=== PATIENT | female | born 1950 | race American Indian/Alaskan Native ===

== ENCOUNTER 2017-12-07 15:35 | Emergency (ER) | payer MEDICARE ==
[2017-12-07 17:17] LABS: Basophils # (Auto) 0.1 K/mm3 (0.0-0.1); Basophils % (Auto) 0.8 % (0.0-1.8); Eosinophils # (Auto) 0.1 K/mm3 (0.0-0.4); Hematocrit 31.6 % (30.3-42.9); Hemoglobin 9.6 gm/dl (10.1-14.3); Lymphocytes % (Auto) 26.8 % (13.4-35.0); Mean Corpuscular HGB Conc 31 % (30-34); Monocytes # (Auto) 0.5 K/mm3 (0.0-0.8); Platelet Count 266 K/mm3 (140-440); Red Blood Count 4.81 M/mm3 (3.65-5.03)
[2017-12-07 17:19] LABS: Mean Corpuscular Hemoglobin 20 pg (28-32); Mean Corpuscular Volume 66 fl (79-97)
[2017-12-07 17:28] LABS: INR 0.95 (0.87-1.13)
[2017-12-07 17:31] LABS: Alanine Aminotransferase 7 units/L (7-56); Albumin 3.8 g/dL (3.9-5); BUN/Creatinine Ratio 21; Blood Urea Nitrogen 23 mg/dL (7-17); Calcium 8.6 mg/dL (8.4-10.2); Hemolysis Index 0
[2017-12-07] MEDS ORDERED: NACL 0.9% 1000 ML 1,000 ML IV ONE (18:26)
[2017-12-07 18:51] LABS: Bacteria,Urine 1+ /HPF (Negative); Bilirubin,Urine NEG (Negative); Blood,Urine NEG (Negative); Color,Urine Straw (Yellow); Mucus,Urine FEW /HPF; Urobilinogen,Urine < 2.0 mg/dL (<2.0)
[2017-12-07] MEDS ORDERED: APRESOLINE IV ONE (18:54)
[2017-12-07 19:52] VITALS: BP 199/68
--- NOTE | 2017-12-07 20:54 | Emergency Department Report ---
ED General Adult HPI - General Chief complaint: Wound/Laceration Stated complaint: TOE PAIN Time Seen by Provider: 12/07/17 18:14 Source: patient Mode of arrival: Wheelchair Limitations: No Limitations - History of Present Illness Initial comments: Patient is a 67-year-old [place] female who is presenting with an area that is draining fluid from the right foot. Patient is a diabetic and states that she works shoes that were too tight yesterday. She is Some swelling to the base of the great toe and there is a small opening discussing clear drainage. Patient states is no pain. Patient denies any nausea vomiting diarrhea or fever at this time. She is able to move her toes with normal effort. Patient states that she is able to bear weight. Severity scale (0 -10): 6 - Related Data Previous Rx's Medication Instructions Recorded Last Taken Type Hydrochlorothiazide [HCTZ] 25 mg PO QDAY #90 tablet 02/04/16 Unknown Rx amLODIPine [Norvasc] 10 mg PO DAILY #90 tab 02/04/16 Unknown Rx glipiZIDE [glipiZIDE XL] 10 mg PO QDAY #90 tab.er.24 02/04/16 Unknown Rx Mupirocin [Bactroban 2% OINT] 1 applic TP TID #1 tube 03/06/16 Unknown Rx Sulfamethoxazole/Trimethoprim 1 each PO BID #10 tablet 12/07/17 Unknown Rx [Bactrim DS TAB] Allergies Allergy/AdvReac Type Severity Reaction Status Date / Time No Known Allergies Allergy Unverified 02/04/16 12:59 ED Review of Systems ROS: Stated complaint: TOE PAIN Other details as noted in HPI Comment: All other systems reviewed and negative ED Past Medical Hx - Past Medical History Hx Hypertension: Yes Hx Diabetes: Yes - Social History Smoking Status: Never Smoker Substance Use Type: None - Medications Home Medications: Home Medications Medication Instructions Recorded Confirmed Last Taken Type Hydrochlorothiazide [HCTZ] 25 mg PO QDAY #90 tablet 02/04/16 Unknown Rx amLODIPine [Norvasc] 10 mg PO DAILY #90 tab 02/04/16 Unknown Rx glipiZIDE [glipiZIDE XL] 10 mg PO QDAY #90 tab.er.24 02/04/16 Unknown Rx Mupirocin [Bactroban 2% OINT] 1 applic TP TID #1 tube 03/06/16 Unknown Rx Sulfamethoxazole/Trimethoprim 1 each PO BID #10 tablet 12/07/17 Unknown Rx [Bactrim DS TAB] ED Physical Exam - General Limitations: No Limitations General appearance: alert, in no apparent distress - Head Head exam: Present: atraumatic, normocephalic - Eye Eye exam: Present: normal appearance - ENT ENT exam: Present: mucous membranes moist - Neck Neck exam: Present: normal inspection - Respiratory Respiratory exam: Present: normal lung sounds bilaterally. Absent: respiratory distress - Cardiovascular Cardiovascular Exam: Present: regular rate, normal rhythm. Absent: systolic murmur, diastolic murmur, rubs, gallop - GI/Abdominal GI/Abdominal exam: Present: soft, normal bowel sounds - Extremities Exam Extremities exam: Present: normal inspection (except the right foot, there is area of edema with small break in the skin that has some drainage of clear serous fluid.) - Back Exam Back exam: Present: normal inspection - Neurological Exam Neurological exam: Present: alert, oriented X3 - Psychiatric Psychiatric exam: Present: normal affect, normal mood - Skin Skin exam: Present: warm, dry, intact, normal color. Absent: rash ED Course Vital Signs 12/07/17 12/07/17 12/07/17 16:49 18:28 19:51 Temperature 98.6 F 98.9 F Pulse Rate 89 88 68 Respiratory 18 16 Rate Blood Pressure 209/85 199/68 Blood Pressure 227/91 [Left] O2 Sat by Pulse 100 100 Oximetry ED Medical Decision Making - Lab Data Result diagrams: 12/07/17 16:59 12/07/17 16:59 Lab Results 12/07/17 12/07/17 12/07/17 Range/Units 16:59 16:59 16:59 WBC 7.4 (4.5-11.0) K/mm3 RBC 4.81 (3.65-5.03) M/mm3 Hgb 9.6 L (10.1-14.3) gm/dl Hct 31.6 (30.3-42.9) % MCV 66 L (79-97) fl MCH 20 L (28-32) pg MCHC 31 (30-34) % RDW 16.0 H (13.2-15.2) % Plt Count 266 (140-440) K/mm3 Lymph % (Auto) 26.8 (13.4-35.0) % Deuel % (Auto) 7.0 (0.0-7.3) % Eos % (Auto) 2.0 (0.0-4.3) % Baso % (Auto) 0.8 (0.0-1.8) % Lymph # 2.0 (1.2-5.4) K/mm3 Deuel # 0.5 (0.0-0.8) K/mm3 Eos # 0.1 (0.0-0.4) K/mm3 Baso # 0.1 (0.0-0.1) K/mm3 Seg Neutrophils % 63.4 (40.0-70.0) % Seg Neutrophils # 4.7 (1.8-7.7) K/mm3 PT 13.2 (12.2-14.9) Sec. INR 0.95 (0.87-1.13) VBG pH (7.320-7.420) Sodium 141 (137-145) mmol/L Potassium 4.1 (3.6-5.0) mmol/L Chloride 100.7 (98-107) mmol/L Carbon Dioxide 24 (22-30) mmol/L Anion Gap 20 mmol/L BUN 23 H (7-17) mg/dL Creatinine 1.1 (0.7-1.2) mg/dL Estimated GFR 60 ml/min BUN/Creatinine Ratio 21 % Glucose 269 H (65-100) mg/dL Lactic Acid (0.7-2.0) mmol/L Calcium 8.6 (8.4-10.2) mg/dL Total Bilirubin < 0.20 (0.1-1.2) mg/dL AST 11 (5-40) units/L ALT 7 (7-56) units/L Alkaline Phosphatase 108 (35-129) units/L Total Protein 6.8 (6.3-8.2) g/dL Albumin 3.8 L (3.9-5) g/dL Albumin/Globulin Ratio 1.3 % Urine Color (Yellow) Urine Turbidity (Clear) Urine pH (5.0-7.0) Ur Specific Lincoln (1.003-1.030) Urine Protein (Negative) mg/dL Urine Glucose (UA) (Negative) mg/dL Urine Ketones (Negative) mg/dL Urine Blood (Negative) Urine Nitrite (Negative) Urine Bilirubin (Negative) Urine Urobilinogen (<2.0) mg/dL Ur Leukocyte Esterase (Negative) Urine WBC (Auto) (0.0-6.0) /HPF Urine RBC (Auto) (0.0-6.0) /HPF Urine Bacteria (Auto) (Negative) /HPF Urine Mucus /HPF 12/07/17 12/07/17 12/07/17 Range/Units 16:59 16:59 18:25 WBC (4.5-11.0) K/mm3 RBC (3.65-5.03) M/mm3 Hgb (10.1-14.3) gm/dl Hct (30.3-42.9) % MCV (79-97) fl MCH (28-32) pg MCHC (30-34) % RDW (13.2-15.2) % Plt Count (140-440) K/mm3 Lymph % (Auto) (13.4-35.0) % Deuel % (Auto) (0.0-7.3) % Eos % (Auto) (0.0-4.3) % Baso % (Auto) (0.0-1.8) % Lymph # (1.2-5.4) K/mm3 Deuel # (0.0-0.8) K/mm3 Eos # (0.0-0.4) K/mm3 Baso # (0.0-0.1) K/mm3 Seg Neutrophils % (40.0-70.0) % Seg Neutrophils # (1.8-7.7) K/mm3 PT (12.2-14.9) Sec. INR (0.87-1.13) VBG pH 7.377 (7.320-7.420) Sodium (137-145) mmol/L Potassium (3.6-5.0) mmol/L Chloride (98-107) mmol/L Carbon Dioxide (22-30) mmol/L Anion Gap mmol/L BUN (7-17) mg/dL Creatinine (0.7-1.2) mg/dL Estimated GFR ml/min BUN/Creatinine Ratio % Glucose (65-100) mg/dL Lactic Acid 2.60 H* (0.7-2.0) mmol/L Calcium (8.4-10.2) mg/dL Total Bilirubin (0.1-1.2) mg/dL AST (5-40) units/L ALT (7-56) units/L Alkaline Phosphatase (35-129) units/L Total Protein (6.3-8.2) g/dL Albumin (3.9-5) g/dL Albumin/Globulin Ratio % Urine Color Straw (Yellow) Urine Turbidity Clear (Clear) Urine pH 5.0 (5.0-7.0) Ur Specific Lincoln 1.011 (1.003-1.030) Urine Protein 30 mg/dl (Negative) mg/dL Urine Glucose (UA) >=500 (Negative) mg/dL Urine Ketones Neg (Negative) mg/dL Urine Blood Neg (Negative) Urine Nitrite Neg (Negative) Urine Bilirubin Neg (Negative) Urine Urobilinogen < 2.0 (<2.0) mg/dL Ur Leukocyte Esterase Neg (Negative) Urine WBC (Auto) 1.0 (0.0-6.0) /HPF Urine RBC (Auto) 1.0 (0.0-6.0) /HPF Urine Bacteria (Auto) 1+ (Negative) /HPF Urine Mucus Few /HPF /02/18 Range/Units 18:25 WBC (4.5-11.0) K/mm3 RBC (3.65-5.03) M/mm3 Hgb (10.1-14.3) gm/dl Hct (30.3-42.9) % MCV (79-97) fl MCH (28-32) pg MCHC (30-34) % RDW (13.2-15.2) % Plt Count (140-440) K/mm3 Lymph % (Auto) (13.4-35.0) % Deuel % (Auto) (0.0-7.3) % Eos % (Auto) (0.0-4.3) % Baso % (Auto) (0.0-1.8) % Lymph # (1.2-5.4) K/mm3 Deuel # (0.0-0.8) K/mm3 Eos # (0.0-0.4) K/mm3 Baso # (0.0-0.1) K/mm3 Seg Neutrophils % (40.0-70.0) % Seg Neutrophils # (1.8-7.7) K/mm3 PT (12.2-14.9) Sec. INR (0.87-1.13) VBG pH (7.320-7.420) Sodium (137-145) mmol/L Potassium (3.6-5.0) mmol/L Chloride (98-107) mmol/L Carbon Dioxide (22-30) mmol/L Anion Gap mmol/L BUN (7-17) mg/dL Creatinine (0.7-1.2) mg/dL Estimated GFR ml/min BUN/Creatinine Ratio % Glucose (65-100) mg/dL Lactic Acid 2.00 (0.7-2.0) mmol/L Calcium (8.4-10.2) mg/dL Total Bilirubin (0.1-1.2) mg/dL AST (5-40) units/L ALT (7-56) units/L Alkaline Phosphatase (35-129) units/L Total Protein (6.3-8.2) g/dL Albumin (3.9-5) g/dL Albumin/Globulin Ratio % Urine Color (Yellow) Urine Turbidity (Clear) Urine pH (5.0-7.0) Ur Specific [place] (1.003-1.030) Urine Protein (Negative) mg/dL Urine Glucose (UA) (Negative) mg/dL Urine Ketones (Negative) mg/dL Urine Blood (Negative) Urine Nitrite (Negative) Urine Bilirubin (Negative) Urine Urobilinogen (<2.0) mg/dL Ur Leukocyte Esterase (Negative) Urine WBC (Auto) (0.0-6.0) /HPF Urine RBC (Auto) (0.0-6.0) /HPF Urine Bacteria (Auto) (Negative) /HPF Urine Mucus /HPF - Medical Decision Making Patient is a 67-year-old black female who is presenting with symptoms slight edema to the base of the right toe. The drainage is clear does not have a foul odor and does not look purulent. I do believe that she has just some injury from wearing tight shoes as cause some localized edema. Patient will be started on antibiotics empirically just to ensure that her foot does not get infected since there is open skin. Patient blood pressure was elevated she was not side showing any signs of any end organ damage. Patient's was given hydralazine blood pressure did decrease to 160s systolic on discharge. Patient did have a slightly elevated lactic acid which is decreasing after fluids. Patient has some mild hyperglycemia. Patient stable for discharged at 2052 Critical care attestation.: If time is entered above; I have spent that time in minutes in the direct care of this critically ill patient, excluding procedure time. ED Disposition Clinical Impression: Extremity edema, Hyperglycemia, Hypertensive urgency Disposition: DC-01 TO HOME OR SELFCARE Is pt being admited?: No Does the pt Need Aspirin: No Condition: Stable Instructions: Hypertension (ED), Leg Edema (ED) Prescriptions: Sulfamethoxazole/Trimethoprim [Bactrim DS TAB] 1 each PO BID #10 tablet
== END 2017-12-07 21:09 | disposition home or self-care (01) ==
LOC: ED 15:35
DX: R60.0 Localized edema (principal); I10 Essential (primary) hypertension; E11.65 Type 2 diabetes mellitus with hyperglycemia
CPT/HCPCS: 36415; 80053; 81001; 82140; 82805; 85025; 85610; 87040; 87086; 96361; 96374; 99283; J0360; J7030

== ENCOUNTER 2017-12-21 09:56 | Emergency (ER) | payer MEDICARE ==
[2017-12-21 10:41] LABS: Basophils # (Auto) 0.1 K/mm3 (0.0-0.1); Eosinophils # (Auto) 0.2 K/mm3 (0.0-0.4); Eosinophils % (Auto) 3.1 % (0.0-4.3); Hematocrit 30.1 % (30.3-42.9); Hemoglobin 9.1 gm/dl (10.1-14.3); Mean Corpuscular HGB Conc 30 % (30-34); Mean Corpuscular Hemoglobin 20 pg (28-32); Mean Corpuscular Volume 66 fl (79-97); Monocytes # (Auto) 0.6 K/mm3 (0.0-0.8); Monocytes % (Auto) 7.1 % (0.0-7.3); Platelet Count 312 K/mm3 (140-440); Red Blood Count 4.56 M/mm3 (3.65-5.03); Red Cell Distribution Width 15.9 % (13.2-15.2)
[2017-12-21 10:42] LABS: Basophils % (Auto) 0.9 % (0.0-1.8); Lymphocytes # (Auto) 2.2 K/mm3 (1.2-5.4); Lymphocytes % (Auto) 28.3 % (13.4-35.0); Mean Platelet Volume 8.9 fl (6-12)
[2017-12-21 10:46] LABS: Calcium 8.9 mg/dL (8.4-10.2)
[2017-12-21 13:33] VITALS: BP 217/79
--- NOTE | 2017-12-21 14:02 | Emergency Department Report ---
Abscess Boil HPI - HPI Chief Complaint: Skin/Abscess/Foreign Body Stated Complaint: RIGHT FOOT PAIN Time Seen by Provider: 12/21/17 13:41 Duration: 4 Days Location: Lower Extremity Severity: Mild History: No Fever, No Pain, No Purulent Drainage, No Numbness, No Foreign Body, No Previous History, No Insect Bite HPI: 67yo female with past medical history diabetes hypertension complaining of a blister on the right ankle. Patient said that she was wearing tight shoes and now has a blister on right ankle. Patient also stated that she did not take her blood pressure medications today. She denies any nausea vomiting chest pain shortness of breath.Pt denies fever, chills. Home Medications: Previous Rx's Medication Instructions Recorded Last Taken Type Hydrochlorothiazide [HCTZ] 25 mg PO QDAY #90 tablet 02/04/16 Unknown Rx amLODIPine [Norvasc] 10 mg PO DAILY #90 tab 02/04/16 Unknown Rx glipiZIDE [glipiZIDE XL] 10 mg PO QDAY #90 tab.er.24 02/04/16 Unknown Rx Mupirocin [Bactroban 2% OINT] 1 applic TP TID #1 tube 03/06/16 Unknown Rx Sulfamethoxazole/Trimethoprim 1 each PO BID #10 tablet 12/07/17 Unknown Rx [Bactrim DS TAB] Cephalexin [Keflex] 500 mg PO BID 10 Days #20 capsule 12/21/17 Unknown Rx Allergies/Adverse Reactions: Allergies Allergy/AdvReac Type Severity Reaction Status Date / Time No Known Allergies Allergy Unverified 02/04/16 12:59 ED Review of Systems ROS: Stated complaint: RIGHT FOOT PAIN Other details as noted in HPI Constitutional: denies: chills, fever Eyes: denies: eye pain, eye discharge, vision change ENT: denies: ear pain, throat pain Respiratory: denies: cough, shortness of breath, wheezing Cardiovascular: denies: chest pain, palpitations Endocrine: no symptoms reported Gastrointestinal: denies: abdominal pain, nausea, diarrhea Genitourinary: denies: urgency, dysuria, discharge Musculoskeletal: denies: back pain, joint swelling, arthralgia Skin: denies: rash, lesions Neurological: denies: headache, weakness, paresthesias Psychiatric: denies: anxiety, depression Hematological/Lymphatic: denies: easy bleeding, easy bruising ED Past Medical Hx - Past Medical History Hx Hypertension: Yes Hx Diabetes: Yes - Surgical History Past Surgical History?: No - Social History Smoking Status: Never Smoker Substance Use Type: None - Medications Home Medications: Home Medications Medication Instructions Recorded Confirmed Last Taken Type Hydrochlorothiazide [HCTZ] 25 mg PO QDAY #90 tablet 02/04/16 Unknown Rx amLODIPine [Norvasc] 10 mg PO DAILY #90 tab 02/04/16 Unknown Rx glipiZIDE [glipiZIDE XL] 10 mg PO QDAY #90 tab.er.24 02/04/16 Unknown Rx Mupirocin [Bactroban 2% OINT] 1 applic TP TID #1 tube 03/06/16 Unknown Rx Sulfamethoxazole/Trimethoprim 1 each PO BID #10 tablet 12/07/17 Unknown Rx [Bactrim DS TAB] Cephalexin [Keflex] 500 mg PO BID 10 Days #20 capsule 12/21/17 Unknown Rx ED Abscess Boil Physical Exam - Exam General: Vital signs noted. No distress. Alert and acting appropriately. Front/Back of Body, Lg (Color): 1 - + blister noted on the back of right ankle, slight erythema noted, slight fluctuance noted Size: 4 cm Exam: Yes Fluctuance (right lower ankle blister, + already draining), Yes Normal Neurologic Exam, Yes Normal Circulation, No Tenderness, No Surrounding Cellulites/Erythema, No Lymphangitis, No Crepitation, No Heart Murmur I & D Note - I & D Note I & D Note: small incision was made with 18 guage needle and over 5ccc of fluid was drained from the blister. no complications noted. Pt is stable ED Course Vital Signs 12/21/17 12/21/17 10:09 13:33 Temperature 97.7 F Pulse Rate 99 H 90 Respiratory 17 18 Rate Blood Pressure 249/78 Blood Pressure 217/79 [Right] O2 Sat by Pulse 100 99 Oximetry 67-year-old female came in complaining of a blister on the right ankle. Patient 's blister was drained in the ER. Patient also has high blood pressure. She takes Lisinopril at home. She did not take her medications today. I try to get patient to take clonidine or ER patient refusing and wants to leave right now. All risks including stroke explained. The time of discharge patient under no acute distress. She denies nausea vomiting chest pressures of breath. He she'll follow with a family doctor. She'll be sent home on antibiotics. Critical care attestation.: If time is entered above; I have spent that time in minutes in the direct care of this critically ill patient, excluding procedure time. ED Medical Decision Making - Lab Data Result diagrams: 12/21/17 10:18 12/21/17 10:15 ED Disposition Clinical Impression: Blister, Hypertension Disposition: DC-01 TO HOME OR SELFCARE Is pt being admited?: No Does the pt Need Aspirin: No Condition: Stable Instructions: Hypertension (ED), Blister (ED) Prescriptions: Cephalexin [Keflex] 500 mg PO BID 10 Days #20 capsule Referrals: PRIMARY MD PACHECO [Primary Care Provider] - 3-5 Days TYLER QUICK MD [Staff Physician] - 3-5 Days
== END 2017-12-21 14:21 | disposition home or self-care (01) ==
LOC: ED 09:56
DX: S90.521A Blister (nonthermal), right ankle, initial encounter (principal); I10 Essential (primary) hypertension; E11.9 Type 2 diabetes mellitus without complications
CPT/HCPCS: 36415; 80048; 85025

== ENCOUNTER 2018-03-28 06:01 | Emergency (ER) | payer MEDICARE ==
[2018-03-28 07:14] LABS: Hematocrit 25.3 % (30.3-42.9); Hemoglobin 7.9 gm/dl (10.1-14.3); Mean Corpuscular HGB Conc 31 % (30-34); Platelet Count 563 K/mm3 (140-440); Red Cell Distribution Width 15.1 % (13.2-15.2)
[2018-03-28 07:27] LABS: Mean Corpuscular Hemoglobin 20 pg (28-32); Mean Corpuscular Volume 63 fl (79-97)
[2018-03-28 07:30] LABS: Albumin 3.3 g/dL (3.9-5); Calcium 9.4 mg/dL (8.4-10.2)
[2018-03-28 09:10] LABS: Anisocytosis 2+; Basophils % (Manual) 0 % (0.0-1.8); Eosinophils % (Manual) 0 % (0.0-4.3); Total Cells Counted 100
[2018-03-28 09:11] LABS: Hypochromasia 2+; Ovalocytes 2+
[2018-03-28 09:12] LABS: Poikilocytosis 2+
[2018-03-28 09:13] LABS: Platelet Estimate Cons
--- NOTE | 2018-03-28 11:58 | XRay Report ---
AP CHEST: HISTORY: Hypertension AP view of the chest demonstrates a normal mediastinal and cardiac contour with clear lungs and normal bony and soft tissue structures. IMPRESSION: Unremarkable AP chest.
[2018-03-28] MEDS ORDERED: ZOSYN/NS 3.375GM/50ML 3.375 GM/50 ML BAG IV ONE (11:59)
[2018-03-28] MEDS ORDERED: VANCOMYCIN PHARMACY TO DOSE IV SCH (12:00)
[2018-03-28 12:02] LABS: INR 1.05 (0.87-1.13)
[2018-03-28 12:03] LABS: Partial Thromboplastin Time 30.9 Sec. (24.2-36.6)
[2018-03-28 12:10] LABS: Creatine Kinase MB 1.5 ng/mL (0.0-4.0)
--- NOTE | 2018-03-28 12:20 | Emergency Department Report ---
ED General Adult HPI - General Chief complaint: Extremity Problem,Nontraumatic Stated complaint: RT FOOT PAIN/DIZZINESS Time Seen by Provider: 03/28/18 11:09 Source: patient, family Mode of arrival: Wheelchair Limitations: No Limitations - History of Present Illness Initial comments: This is a patient that is a poor historian. She states that she had a stent performed [address] Valdez a vascular surgeon in [place]. She states that she was supposed to go to the office for an arteriogram today. However she complains of 6 out of 10 right foot pain and difficulty in walking on the foot. She denies fever and chills. She states she has been breathing okay. She did not notice the foul smell which is obviously emanating from her leg as it is gangrenous. She had some difficulty in walking on her foot today. -: Gradual, days(s) Location: right, lower extremity Radiation: non-radiation Quality: aching Consistency: intermittent Improves with: none Worsens with: other (ambulation) Associated Symptoms: denies other symptoms, weakness. denies: confusion, chest pain, cough, diaphoresis, fever/chills, headaches, loss of appetite, malaise, nausea/vomiting, rash, seizure, shortness of breath, syncope Treatments Prior to Arrival: none - Related Data Previous Rx's Medication Instructions Recorded Last Taken Type Hydrochlorothiazide [HCTZ] 25 mg PO QDAY #90 tablet 02/04/16 Unknown Rx amLODIPine [Norvasc] 10 mg PO DAILY #90 tab 02/04/16 Unknown Rx glipiZIDE [glipiZIDE XL] 10 mg PO QDAY #90 tab.er.24 02/04/16 Unknown Rx Mupirocin [Bactroban 2% OINT] 1 applic TP TID #1 tube 03/06/16 Unknown Rx Sulfamethoxazole/Trimethoprim 1 each PO BID #10 tablet 12/07/17 Unknown Rx [Bactrim DS TAB] Cephalexin [Keflex] 500 mg PO BID 10 Days #20 capsule 12/21/17 Unknown Rx Allergies Allergy/AdvReac Type Severity Reaction Status Date / Time No Known Allergies Allergy Verified 03/28/18 06:22 ED Review of Systems ROS: Stated complaint: RT FOOT PAIN/DIZZINESS Other details as noted in HPI Constitutional: denies: chills, fever Eyes: denies: eye pain, eye discharge, vision change ENT: denies: ear pain, throat pain Respiratory: denies: cough, shortness of breath, wheezing Cardiovascular: denies: chest pain, palpitations Endocrine: no symptoms reported Gastrointestinal: denies: abdominal pain, nausea, diarrhea Genitourinary: denies: urgency, dysuria, discharge Musculoskeletal: as per HPI. denies: back pain, joint swelling, arthralgia Skin: denies: rash, lesions Neurological: denies: headache, weakness, paresthesias Psychiatric: denies: anxiety, depression Hematological/Lymphatic: denies: easy bleeding, easy bruising ED Past Medical Hx - Past Medical History Hx Hypertension: Yes Hx Diabetes: Yes - Surgical History Additional Surgical History: right leg stent - Social History Smoking Status: Never Smoker Substance Use Type: None - Medications Home Medications: Home Medications Medication Instructions Recorded Confirmed Last Taken Type Hydrochlorothiazide [HCTZ] 25 mg PO QDAY #90 tablet 02/04/16 Unknown Rx amLODIPine [Norvasc] 10 mg PO DAILY #90 tab 02/04/16 Unknown Rx glipiZIDE [glipiZIDE XL] 10 mg PO QDAY #90 tab.er.24 02/04/16 Unknown Rx Mupirocin [Bactroban 2% OINT] 1 applic TP TID #1 tube 03/06/16 Unknown Rx Sulfamethoxazole/Trimethoprim 1 each PO BID #10 tablet 12/07/17 Unknown Rx [Bactrim DS TAB] Cephalexin [Keflex] 500 mg PO BID 10 Days #20 capsule 12/21/17 Unknown Rx ED Physical Exam - General Limitations: No Limitations General appearance: alert, in no apparent distress - Head Head exam: Present: atraumatic, normocephalic - Eye Eye exam: Present: normal appearance. Absent: scleral icterus - ENT ENT exam: Present: mucous membranes moist - Neck Neck exam: Present: normal inspection. Absent: tenderness, meningismus - Respiratory Respiratory exam: Present: normal lung sounds bilaterally. Absent: respiratory distress - Cardiovascular Cardiovascular Exam: Present: regular rate, normal rhythm. Absent: systolic murmur, diastolic murmur, rubs, gallop - GI/Abdominal GI/Abdominal exam: Present: soft, normal bowel sounds. Absent: distended, tenderness, guarding, rebound, rigid - Extremities Exam Extremities exam: Present: normal inspection (both legs have postinflammatory hyperpigmentation and brawniness up to the midcalf.), other (gangrenous foot ulcer postinflammatory hyperpigmentation brawniness to up above the ankle/mid calf. No palpable pulses in the foot.). Absent: normal capillary refill - Back Exam Back exam: Present: normal inspection - Neurological Exam Neurological exam: Present: alert, oriented X3, CN II-XII intact. Absent: motor sensory deficit (the patient is able to dorsiflex and plantar flex her foot. She states she does have sensation present in her foot.) - Psychiatric Psychiatric exam: Present: normal affect, flat affect - Skin Skin exam: Present: warm, dry, intact, normal color. Absent: rash - Other Other exam information: No pulses are appreciated in the right foot. There is a healed ulcer. There is a fetid odor consistent with gangrene. ED Course Vital Signs 03/28/18 12:53 Temperature 99.4 F Pulse Rate 100 H Respiratory 20 Rate Blood Pressure 152/68 [Left] O2 Sat by Pulse 100 Oximetry - Reevaluation(s) Reevaluation #1: 03/28/18 12:11 Nurse states the patient had a hypoglycemic to a low of 33. She fed the patient. The patient is awake and alert while I am in the room. Blood sugar will be rechecked. Her white count is 21 thousand. She has gangrene of her foot. She will be treated with Zosyn and vancomycin to begin. She will be admitted to the hospitalist service. I'm waiting for her vascular surgeon to return my call. Reevaluation #2: Arterial Doppler did not show flow to the patient's foot to include dorsalis pedis and posterior tibial. There was flow through the stent. There was flow through the popliteal. I am still trying to get Dr. Valdez who has not returned my call yet. I will try our vascular surgeon refrigeration lead who is Dr. Harding for advice. 03/28/18 12:54 Reevaluation #3: I spoke to Dr. Armando the vascular surgeon refrigeration lead here. He stated he did not think there was any indication for emergency intervention. I finally spoke to Dr. Valdez. He instructed me to transfer the patient emergency department at [place] for further care and evaluation. The patient is stable for transfer. Therefore she will be transferred to her vascular surgeon for further care. 03/28/18 13:13 Reevaluation #4: The patient is transferred for continuity of care with her vascular surgeon at his request. 03/28/18 13:16 ED Medical Decision Making - Lab Data Result diagrams: 03/28/18 06:46 03/28/18 11:29 Laboratory Results - last 24 hr 03/28/18 03/28/18 03/28/18 06:46 06:46 11:02 WBC 21.6 H RBC 4.00 Hgb 7.9 L Hct 25.3 L MCV 63 L MCH 20 L MCHC 31 RDW 15.1 Plt Count 563 H Add Manual Diff Complete Total Counted 100 Seg Neuts % (Manual) 93.0 H Band Neutrophils % 0 Lymphocytes % (Manual) 3.0 L Reactive Lymphs % (Man) 0 Monocytes % (Manual) 4.0 Eosinophils % (Manual) 0 Basophils % (Manual) 0 Metamyelocytes % 0 Myelocytes % 0 Promyelocytes % 0 Blast Cells % 0 Nucleated RBC % Not Reportable Seg Neutrophils # Man 20.1 H Band Neutrophils # 0.0 Lymphocytes # (Manual) 0.6 L Abs React Lymphs (Man) 0.0 Monocytes # (Manual) 0.9 H Eosinophils # (Manual) 0.0 Basophils # (Manual) 0.0 Metamyelocytes # 0.0 Myelocytes # 0.0 Promyelocytes # 0.0 Blast Cells # 0.0 WBC Morphology Not Reportable Hypersegmented Neuts Not Reportable Hyposegmented Neuts Not Reportable Hypogranular Neuts Not Reportable Smudge Cells Not Reportable Toxic Granulation Not Reportable Toxic Vacuolation Not Reportable Dohle Bodies Not Reportable Pelger-Huet Anomaly Not Reportable Donato Rods Not Reportable Platelet Estimate Cons Clumped Platelets Not Reportable Plt Clumps, EDTA Not Reportable Large Platelets Not Reportable Giant Platelets Not Reportable Platelet Satelliting Not Reportable Plt Morphology Comment Not Reportable RBC Morphology Not Reportable Dimorphic RBCs Not Reportable Polychromasia Not Reportable Hypochromasia 2+ Poikilocytosis 2+ Anisocytosis 2+ Microcytosis 2+ Macrocytosis Not Reportable Spherocytes Not Reportable Pappenheimer Bodies Not Reportable Sickle Cells Not Reportable Target Cells Not Reportable Tear Drop Cells Not Reportable Ovalocytes 2+ Helmet Cells Not Reportable [place] Bodies Not Reportable [place] Rings Not Reportable [place] Cells Not Reportable Bite Cells Not Reportable Crenated Cell Not Reportable Elliptocytes 1+ Acanthocytes (Spur) Not Reportable Rouleaux Not Reportable Hemoglobin C Crystals Not Reportable Schistocytes Not Reportable Malaria parasites Not Reportable [place] Bodies Not Reportable Hem Pathologist Commnt No PT INR APTT Sodium 135 L Potassium 4.5 Chloride 92.0 L Carbon Dioxide 26 Anion Gap 22 BUN 29 H Creatinine 1.3 H Estimated GFR 49 BUN/Creatinine Ratio 22 Glucose 119 H POC Glucose < 40 L Calcium 9.4 Total Bilirubin 0.20 AST 13 ALT 13 Alkaline Phosphatase 109 Total Creatine Kinase CK-MB (CK-2) CK-MB (CK-2) Rel Index Troponin T NT-Pro-B Natriuret Pep Total Protein 7.9 Albumin 3.3 L Albumin/Globulin Ratio 0.7 Blood Type Antibody Screen 03/28/18 03/28/18 03/28/18 11:16 11:29 11:29 WBC RBC Hgb Hct MCV MCH MCHC RDW Plt Count Add Manual Diff Total Counted Seg Neuts % (Manual) Band Neutrophils % Lymphocytes % (Manual) Reactive Lymphs % (Man) Monocytes % (Manual) Eosinophils % (Manual) Basophils % (Manual) Metamyelocytes % Myelocytes % Promyelocytes % Blast Cells % Nucleated RBC % Seg Neutrophils # Man Band Neutrophils # Lymphocytes # (Manual) Abs React Lymphs (Man) Monocytes # (Manual) Eosinophils # (Manual) Basophils # (Manual) Metamyelocytes # Myelocytes # Promyelocytes # Blast Cells # WBC Morphology Hypersegmented Neuts Hyposegmented Neuts Hypogranular Neuts Smudge Cells Toxic Granulation Toxic Vacuolation Dohle Bodies Pelger-Huet Anomaly Donato Rods Platelet Estimate Clumped Platelets Plt Clumps, EDTA Large Platelets Giant Platelets Platelet Satelliting Plt Morphology Comment RBC Morphology Dimorphic RBCs Polychromasia Hypochromasia Poikilocytosis Anisocytosis Microcytosis Macrocytosis Spherocytes Pappenheimer Bodies Sickle Cells Target Cells Tear Drop Cells Ovalocytes Helmet Cells [place] Bodies [place] Cells Bite Cells Crenated Cell Elliptocytes Acanthocytes (Spur) Rouleaux Hemoglobin C Crystals Schistocytes Malaria parasites Brandon Bodies Hem Pathologist Commnt PT 14.2 INR 1.05 APTT 30.9 Sodium Potassium Chloride Carbon Dioxide Anion Gap BUN Creatinine Estimated GFR BUN/Creatinine Ratio Glucose POC Glucose < 40 L Calcium Total Bilirubin AST ALT Alkaline Phosphatase Total Creatine Kinase CK-MB (CK-2) CK-MB (CK-2) Rel Index Troponin T NT-Pro-B Natriuret Pep Total Protein Albumin Albumin/Globulin Ratio Blood Type B NEGATIVE Antibody Screen Negative 03/28/18 03/28/18 03/28/18 11:29 11:29 12:30 WBC RBC Hgb Hct MCV MCH MCHC RDW Plt Count Add Manual Diff Total Counted Seg Neuts % (Manual) Band Neutrophils % Lymphocytes % (Manual) Reactive Lymphs % (Man) Monocytes % (Manual) Eosinophils % (Manual) Basophils % (Manual) Metamyelocytes % Myelocytes % Promyelocytes % Blast Cells % Nucleated RBC % Seg Neutrophils # Man Band Neutrophils # Lymphocytes # (Manual) Abs React Lymphs (Man) Monocytes # (Manual) Eosinophils # (Manual) Basophils # (Manual) Metamyelocytes # Myelocytes # Promyelocytes # Blast Cells # WBC Morphology Hypersegmented Neuts Hyposegmented Neuts Hypogranular Neuts Smudge Cells Toxic Granulation Toxic Vacuolation Dohle Bodies Pelger-Huet Anomaly Donato Rods Platelet Estimate Clumped Platelets Plt Clumps, EDTA Large Platelets Giant Platelets Platelet Satelliting Plt Morphology Comment RBC Morphology Dimorphic RBCs Polychromasia Hypochromasia Poikilocytosis Anisocytosis Microcytosis Macrocytosis Spherocytes Pappenheimer Bodies Sickle Cells Target Cells Tear Drop Cells Ovalocytes Helmet Cells [place] Bodies [place] Cells Bite Cells Crenated Cell Elliptocytes Acanthocytes (Spur) Rouleaux Hemoglobin C Crystals Schistocytes Malaria parasites Brandon Bodies Hem Pathologist Commnt PT INR APTT Sodium Potassium Chloride Carbon Dioxide Anion Gap BUN Creatinine Estimated GFR BUN/Creatinine Ratio Glucose 32 L* POC Glucose 91 Calcium Total Bilirubin AST ALT Alkaline Phosphatase Total Creatine Kinase 124 CK-MB (CK-2) 1.5 CK-MB (CK-2) Rel Index 1.2 Troponin T < 0.010 NT-Pro-B Natriuret Pep 788.0 Total Protein Albumin Albumin/Globulin Ratio Blood Type Antibody Screen - Radiology Data interpreted by me: Arterial Doppler shows no flow to the posterior tibial and dorsalis pedis of the right foot. The stent is patent in the SFA. The popliteal is also patent on the right. Critical Care Time: Yes Critical care time in (mins) excluding proc time.: 75 Critical care attestation.: If time is entered above; I have spent that time in minutes in the direct care of this critically ill patient, excluding procedure time. ED Disposition Clinical Impression: Peripheral arterial occlusive disease, Hypoglycemia associated with type 2 diabetes mellitus Ischemic ulcer of right foot Qualifiers: Non-pressure ulcer stage: unspecified non-pressure ulcer stage Qualified Code(s ): L97.519 - Non-pressure chronic ulcer of other part of right foot with unspecified severity Sepsis Qualifiers: Sepsis type: sepsis due to unspecified organism Qualified Code(s): A41.9 - Sepsis, unspecified organism Disposition: DC/TX-70 ANOTHER TYPE HLTHCARE Is pt being admited?: No Does the pt Need Aspirin: No Condition: Stable Instructions: Diabetes Mellitus Type 2 in Adults (ED) Referrals: ANN WRAY SHAKER SCREEN OPERATOR [Primary Care Provider] - 3-5 Days Time of Disposition: 13:16
[2018-03-28] MEDS ORDERED: VANCOMYCIN 1,500 MG in NACL 0.9% 500 ML 500 ML IV ONE (12:45)
--- NOTE | 2018-03-28 12:48 | History and Physical Report ---
Medications and Allergies Allergies Allergy/AdvReac Type Severity Reaction Status Date / Time No Known Allergies Allergy Verified 03/28/18 06:22 Home Medications Medication Instructions Recorded Confirmed Last Taken Type Hydrochlorothiazide [HCTZ] 25 mg PO QDAY #90 tablet 02/04/16 Unknown Rx amLODIPine [Norvasc] 10 mg PO DAILY #90 tab 02/04/16 Unknown Rx glipiZIDE [glipiZIDE XL] 10 mg PO QDAY #90 tab.er.24 02/04/16 Unknown Rx Mupirocin [Bactroban 2% OINT] 1 applic TP TID #1 tube 03/06/16 Unknown Rx Sulfamethoxazole/Trimethoprim 1 each PO BID #10 tablet 12/07/17 Unknown Rx [Bactrim DS TAB] Cephalexin [Keflex] 500 mg PO BID 10 Days #20 capsule 12/21/17 Unknown Rx Active Meds: Active Medications Vancomycin HCl 1,500 mg/ (Sodium Chloride) 515 mls @ 333.333 mls/hr IV ONCE ONE Stop: 03/28/18 14:17 Vancomycin HCl 1,250 mg/ (Sodium Chloride) 262.5 mls @ 166.667 mls/hr IV Q24H MIRIAM Vancomycin HCl (Vancomycin Pharmacy To Dose) 1 each IV PKCONSULT MIRIAM; Protocol Results - Labs CBC & Chem 7: 03/28/18 06:46 03/28/18 11:29 Labs: Abnormal lab results 03/28/18 03/28/18 03/28/18 Range/Units 06:46 06:46 11:02 WBC 21.6 H (4.5-11.0) K/mm3 Hgb 7.9 L (10.1-14.3) gm/dl Hct 25.3 L (30.3-42.9) % MCV 63 L (79-97) fl MCH 20 L (28-32) pg Plt Count 563 H (140-440) K/mm3 Seg Neuts % (Manual) 93.0 H (40.0-70.0) % Lymphocytes % (Manual) 3.0 L (13.4-35.0) % Seg Neutrophils # Man 20.1 H (1.8-7.7) K/mm3 Lymphocytes # (Manual) 0.6 L (1.2-5.4) K/mm3 Monocytes # (Manual) 0.9 H (0.0-0.8) K/mm3 Sodium 135 L (137-145) mmol/L Chloride 92.0 L (98-107) mmol/L BUN 29 H (7-17) mg/dL Creatinine 1.3 H (0.7-1.2) mg/dL Glucose 119 H (65-100) mg/dL POC Glucose < 40 L (70-105) Albumin 3.3 L (3.9-5) g/dL 03/28/18 03/28/18 Range/Units 11:16 11:29 WBC (4.5-11.0) K/mm3 Hgb (10.1-14.3) gm/dl Hct (30.3-42.9) % MCV (79-97) fl MCH (28-32) pg Plt Count (140-440) K/mm3 Seg Neuts % (Manual) (40.0-70.0) % Lymphocytes % (Manual) (13.4-35.0) % Seg Neutrophils # Man (1.8-7.7) K/mm3 Lymphocytes # (Manual) (1.2-5.4) K/mm3 Monocytes # (Manual) (0.0-0.8) K/mm3 Sodium (137-145) mmol/L Chloride (98-107) mmol/L BUN (7-17) mg/dL Creatinine (0.7-1.2) mg/dL Glucose 32 L* (65-100) mg/dL POC Glucose < 40 L (70-105) Albumin (3.9-5) g/dL
--- NOTE | 2018-03-28 12:48 | XRay Report ---
RIGHT TIBIA/FIBULA: History: Gangrene of the leg AP and lateral views of the right tibia/fibula demonstrate normal mineralization and contours for this patient's age. No evidence for fracture or bony destruction. There is mild nonspecific distal soft tissue swelling. IMPRESSION: Nonspecific soft tissue swelling. Unremarkable bony structures.
--- NOTE | 2018-03-28 12:50 | XRay Report ---
RIGHT FOOT, 2 views: History: Gangrene leg Slightly nonstandard views are presented. There is nonspecific soft tissue swelling or edema. There is a small amount of soft tissue gas or ulceration seen inferior to calcaneus. No evidence for fracture, bony destruction or erosive joint pathology. IMPRESSION: Soft tissue findings as described. No acute osseous findings are detected.
[2018-03-28 15:03] VITALS: BP 146/59
[2018-03-29] MEDS ORDERED: VANCOMYCIN 1,250 MG in NACL 0.9% 250ML 250 ML IV SCH (12:45)
--- NOTE | 2018-03-29 13:21 | Vascular Lab Report ---
LOWER EXTREMITY ARTERIAL DUPLEX: REASON FOR EXAM: Peripheral arterial disease. COMMENTS ON THE RIGHT: Biphasic waveforms are seen proximally. Monophasic waveforms are seen distally. Multilevel arterial occlusive disease is identified. Scattered plaque is seen throughout. Findings are consistent with abnormal perfusion. Findings are not consistent with the ability to heal distal wounds. COMMENTS ON THE LEFT: A limited study shows monophasic flow velocity flow at the anterior tibial artery and dorsalis pedis artery. No flow seen in the posterior tibial artery. These findings are consistent with severe arterial occlusive disease. IMPRESSION: RIGHT: Severe multilevel arterial occlusive disease. Consider further evaluation. LEFT:Severe arterial occlusive disease.
== END 2018-03-28 16:45 | disposition other institution (70) ==
LOC: ED 06:01
DX: I77.9 Disorder of arteries and arterioles, unspecified (principal); L97.519 Non-pressure chronic ulcer of other part of right foot with unspecified severity; A41.9 Sepsis, unspecified organism; I10 Essential (primary) hypertension; E11.9 Type 2 diabetes mellitus without complications
CPT/HCPCS: 36415; 71045; 73590; 73620; 80048; 80053; 82550; 82553; 82947; 82962; 83880; 84484; 85007; 85025; 85610; 85730; 86850; 86900; 86901; 93005; 93010; 93926; 93971; 96365; 96367; 99291; 99292; J2543; J3370; J7040